=== PATIENT | male | born 1975 | race Asian ===

== ENCOUNTER 2024-12-29 08:08 | Emergency (ER) | payer OTHER, MEDICAID ==
[~2024-12-29] VITALS: Ht 167.6 cm; Wt 84.0 kg
[2024-12-29 08:10] VITALS: O2SAT 100
[2024-12-29] MEDS ORDERED: ACETAMINOPHEN 325MG TABLET PO ONE (08:15)
[2024-12-29] MEDS ORDERED: TOPUD PO (09:12)
[2024-12-29] MEDS: ACETAMINOPHEN 325MG TABLET PO ONE (10:21)
[2024-12-29 10:24] VITALS: BP 144/96; PULSE 90; RESP 16; TEMP 36.6; O2SAT 100
== END 2024-12-29 10:25 | disposition home or self-care (01) ==
LOC: ER 09:02
DX: M25.512 Pain in left shoulder (principal); M25.562 Pain in left knee; E78.00 Pure hypercholesterolemia, unspecified; I10 Essential (primary) hypertension; V98.8XXA Other specified transport accidents, initial encounter; Y93.89 Activity, other specified; Y92.89 Other specified places as the place of occurrence of the external cause; Y99.8 Other external cause status
CPT/HCPCS: 73030; 73560; 99284